=== PATIENT | female | born 1975 | race Two or more races ===

== ENCOUNTER → 2020-09-22 | Outpatient (CLI) | payer SELFPAY ==
[~2020-09-22] MED LIST: IBUP-1060 PO; OXYC1TAB15 PO
== END ==
LOC: LAB 12:11
PROVIDERS: ATTEND Obstetrics & Gynecology
DX: Z01.812 Encounter for preprocedural laboratory examination (principal); Z20.822 Contact with and (suspected) exposure to COVID-19; N87.1 Moderate cervical dysplasia
CPT/HCPCS: U0003; U0005

== ENCOUNTER 2020-09-25 06:08 | Day surgery (SDC) | payer SELFPAY ==
[~2020-09-25] VITALS: Ht 162.6 cm; Wt 72.7 kg
[~2020-09-25 06:08] MED LIST changes: +HYDROmorphone 2 MG/ML VIAL IVP PRN; -IBUP-1060 PO; +IV RINGERS,LACTATED 1000ML 1,000 ML IV SCH; +MORPHINE SULFATE 2 MG/ML INJ. IVP PRN; -OXYC1TAB15 PO; +PROCHLORPERAZINE 10 MG/2 ML VIAL. IVP PRN; +fentaNYL PF VIAL 100 MCG/2 ML VIAL IVP PRN
[2020-09-25 06:41] VITALS: BP 130/66
[2020-09-25] MEDS ORDERED: FAMOTIDINE 20 MG/2 ML VIAL ONE (07:30)
[2020-09-25] MEDS ORDERED: PROPOFOL 10 MG/ML (20ML) VIAL. IV ONE (07:30)
[2020-09-25] MEDS ORDERED: ONDANSETRON PF 4 MG/2 ML VIAL. ONE (07:30)
[2020-09-25] MEDS ORDERED: DEXAMETHASONE SOD PHOS 4 MG/ML VIAL ONE (07:30)
[2020-09-25] MEDS ORDERED: GELATIN SPONGE SIZE 100. ONE (07:30)
[2020-09-25] MEDS ORDERED: VASOPRESSIN 20 UNIT/ML VIAL. ONE (07:31)
[2020-09-25] MEDS ORDERED: fentaNYL PF VIAL 100 MCG/2 ML VIAL ONE (07:31)
[2020-09-25] MEDS ORDERED: MIDAZOLAM HCL/PF 2 MG/2 ML VIAL. ONE (07:31)
[2020-09-25] MEDS ORDERED: FERRIC SUBSULFATE 8 ML SOL.W.APPL TP ONE (07:31)
[2020-09-25 07:32] LABS: BASO % 1 % (0-3); EOS # 0.8 x10^3/uL (0.0-0.7); EOS % 11 % (0-3); HEMATOCRIT 38.2 % (36.0-47.0); HEMOGLOBIN 12.9 g/dL (12.0-15.5); LYMPH # 1.8 x10^3/uL (1.0-4.8); LYMPH % 24 % (24-48); MEAN CORPUSCULAR HEMOGLOBIN 31 pg (25-35); MEAN CORPUSCULAR HGB CONC 34 g/dL (31-37); MEAN CORPUSCULAR VOLUME 93 fL (79-100); MONO # 0.7 x10^3/uL (0.0-1.1); MONO % 9 % (0-9); NEUT # 4.3 x10^3/uL (1.8-7.7); NEUT % 56 % (31-73); PLATELET COUNT 221 x10^3/uL (140-400); RED BLOOD COUNT 4.13 x10^6/uL (3.50-5.40); RED CELL DISTRIBUTION WIDTH 12.6 % (11.5-14.5); WHITE BLOOD COUNT 7.7 x10^3/uL (4.0-11.0)
--- NOTE | 2020-09-25 07:36 | PDOC1 ---
PEDIATRIC SPEECH LANGUAGE PATHOLOGIST H&P Date of Admission: Date of Admission: History of Present Illness: The pt is a 45y who presents for scheduled sugery. The pt was referred from [facility] after ARMEN II found on colpo. After an ASCUS/HPV pos pap the pt underwent a colpo on 07/06/20. She was found to have ARMEN II on bx (at 6 o'clock) with a neg ECC. She reported dysplasia in the past (ASCUS pap in 2016), which she states that she underwent a colpo at that time as well. She has had no abnml pap until this recent one. PMH: Denies PSH: Denies Meds: None All: NKDA OBHx: 4 x TSVD, 1 x AB [employer]: Menarche at 14yo / regular periods SH: no tob, no EtOH FH: noncontributory Medications: Meds: Current Medications Medications (Trade) Dose Ordered Sig/Greer Route PRN Reason Start Time Stop Time Status Last Admin Dose Admin Ringer's Solution 1,000 ml @ 30 mls/hr Q24H IV 09/25/20 06:00 09/25/20 17:59 09/25/20 06:51 Allergies: Coded Allergies: No Known Drug Allergies (Unverified , 09/25/20) Physical Exam: Vital Signs: Vital Signs Date Time Temp Pulse Resp B/P (MAP) Pulse Ox O2 Delivery O2 Flow Rate FiO2 09/25/20 06:46 97.2 78 18 130/66 99 Room Air 97.2 PE: GENERAL: No apparent distress. Alert and oriented. HEENT: Head normocephalic, atraumatic. NECK: Supple LUNGS: Clear to auscultation. HEART: RRR, S1, S2 present, pulses intact ABDOMEN: Soft, positive bowel sounds. EXTREMITIES: No cyanosis or edema. NEUROLOGIC: Normal speech, normal tone PSYCHIATRIC: Normal affect, normal mood. SKIN: No ulceration. Labs: Laboratory Tests Test 09/25/20 05:40 POC Urine HCG, Qualitative Hcg negative (Negative) Assessment & Plan: A/P 45y with ARMEN II 1.) ASCUS/HPV pos pap - colpo on 07/06 ARMEN II on bx and neg ECC 2.) Contraception - OCPs ODIN LANDRUM MD Sep 25, 2020 07:36
[2020-09-25] MEDS ORDERED: IBUP-1060 PO (08:48)
[2020-09-25] MEDS ORDERED: OXYC1TAB15 PO (08:48)
[2020-09-25] MEDS ORDERED: oxyCODONE/APAP 5/325 1 TAB TABLET PO ONE (09:00)
[2020-09-25] MEDS ORDERED: oxyCODONE/APAP 5/325 1 TAB TABLET ONE (09:02)
[2020-09-25 09:14] VITALS: BP 146/77
--- NOTE | 2020-09-25 09:39 | PDOC4 ---
OPERATIVE NOTE: PreOp Dx: 1.) ASCUS/HPV pos pap, 2.) colpo bx ARMEN II and neg ECC PostOp Dx: same Procedure: CKC, ECC Surgeon: Sea Landrum Anesthesia: LMA EBL: 50 cc Fluids: 700 cc UOP: 45 cc Complications: None Specimen: cone and ECC Findings: no obvious lesions ODIN LANDRUM MD Sep 25, 2020 09:39
--- NOTE | 2020-09-25 10:05 | OP ---
DATE OF SURGERY: 09/25/2020 PREOPERATIVE DIAGNOSES: 1. ASCUS HPV positive Pap. 2. Colposcopic biopsy with ARMEN 2 with a negative ECC. POSTOPERATIVE DIAGNOSES: 1. ASCUS HPV positive Pap. 2. Colposcopic biopsy with ARMEN 2 with a negative ECC. PROCEDURE: Cold knife cone with endocervical curetting. SURGEON: Britton Melgoza MD ANESTHESIA: LMA. ESTIMATED BLOOD LOSS: 50 mL. FLUIDS: 700 mL. URINE OUTPUT: 45 mL. COMPLICATIONS: None. SPECIMENS: Cone and ECC. FINDINGS: No obvious lesions seen on the cervix. DESCRIPTION OF PROCEDURE: The patient was taken to the operating room where LMA was placed without difficulty. The patient was prepped and draped in the normal sterile fashion. Speculum was placed in the patient's vagina to visualize the cervix. Anterior lip of the cervix was then grasped with a single tooth tenaculum. At that point, the right lateral edge of the cervix was then tagged with 3-0 Vicryl. This was then performed on the left side where another 3-0 Vicryl was then placed and tagged. At that point, the cervix was circumferentially injected with vasopressin around the transformation zone. An 11 blade scalpel was then used to circumferentially cut the cervix just lateral to the transformation zone. On the left side, the margin was very close to the cervical os. At that point, the specimen was then grasped with Allis clamps and Kramer scissors were used to cut the cone specimen out. Specimen was then tagged at 12 o'clock. An ECC was then performed and collected. Cervical bed was cauterized until hemostasis was achieved. At that point, Gelfoam was placed in the cervical bed. Two lateral stitches were tied together to keep the Gelfoam in place. The tenaculums were removed as well as the speculum. Good hemostasis was noted. The patient was taken to the recovery room in stable condition. SERAFIN/RADHA/NAHUN DR: Driss TID: [id number] [facility] FACILITYThelma
--- NOTE | 2020-09-27 15:08 | PATHOLOGY ---
[facility] Accession Number: [id number] . 01 Material submitted: . PART A: cervix - ECC PART B: cervix - CONE BIOPSY @ 12 O'CLOCK . 01 Clinical history: . COLD KNIFE CONIZATION . 02 Diagnosis: A. Endocervical curettings: - Mucin containing few segments of inactive/weakly proliferative endometrium and endocervical mucosa - negative for dysplasia. . B. Uterine cervix, cold knife conization: - Moderate dysplasia (ARMEN II), focal. - Dysplastic epithelium is focally present at the ectocervical margin. See comment. - Endocervical and deep margins negative for dysplasia. - Active chronic cervicitis with squamous metaplasia. (JPM:nicki; 09/27/2020) [facility] [place] 09/27/2020 1050 Local . 02 Comment: Sections of the cold knife conization reveal a small focus of moderate dysplasia (ARMEN II). Dysplastic epithelium is focally present at the "ectocervical margin" which is devoid of ectocervical epithelium. The endocervical and deep margins are negative for dysplasia. (JPM:nicki; 09/27/2020) . 02 Electronically signed: . Pool Martin MD, Pathologist NPI- [id number] . 01 Gross description: . A. The specimen is received in formalin, labeled "Chavezaguirre, Mona and ECC". It consists of multiple weinberg-white, irregular soft tissue fragments measuring 2.0 x 0.5 x 0.2 cm in aggregate. The specimen is placed in a biopsy bag and entirely submitted in A1. . B. The specimen is received in formalin, labeled "Chavezaguirre, Mona and cone biopsy at 12:00". It consists of a previously incised, oriented weinberg, irregular soft tissue fragment consistent with cervix measuring 3.5 x 2.0 x 1.2 cm. The specimen is oriented with a suture designating 12:00. The ectocervix appears weinberg-white, focally hemorrhagic, and focally effaced. The endocervical margin is inked blue and the remaining stromal margin is inked black. Sectioning reveals white rubbery cut surfaces. The specimen is entirely submitted as follows: B1-B2: 12:00-3:00 B3: 3:00-6:00 B4: 6:00-9:00 B5-B6: 9:00-12:00 (MRF; 09/25/2020) MFE/MFE 09/27/2020 1047 Local . 02 Pathologist provided ICD-10: N85.9, N87.1, N72 . 02 CPT . 800763, [id number] Specimen Comment: A courtesy copy of this report has been sent to [phone] Specimen Comment: Report sent to Performed at: 01 [facility] [address] [id number] MD Hardeep Stahl MD Phone: [phone] Performed at: 02 [facility] [address] [place], [place] [id number] MD Pool Martin MD Phone: [phone]
== END 2020-09-25 09:29 | disposition home or self-care (01) ==
LOC: SURG 06:08
PROVIDERS: ATTEND Obstetrics & Gynecology
DX: R87.610 Atypical squamous cells of undetermined significance on cytologic smear of cervix (ASC-US) (principal); N87.1 Moderate cervical dysplasia; N72 Inflammatory disease of cervix uteri; N85.9 Noninflammatory disorder of uterus, unspecified; Z79.899 Other long term (current) drug therapy; Z98.890 Other specified postprocedural states
CPT/HCPCS: 36415; 57520; 81025; 85025; 86850; 86900; 86901; A4209; A4213; A4930; J1100; J2250; J2405; J2704; J3010; J3490